=== PATIENT | female | born 1995 | race Caucasian/White ===

== ENCOUNTER 2023-03-22 18:47 | Outpatient (REF) | payer OTHER, SELFPAY ==
[2023-03-27 15:07] LABS: Age Gdln ACOG Testing Note (.); IGP, rfx Aptima HPV ASCU Note (.)
== END 2023-03-22 18:48 | disposition home or self-care (01) ==
LOC: LAB 18:47
PROVIDERS: PCP Obstetrics & Gynecology; Visit Provider Obstetrics & Gynecology
DX: Z01.419 Encounter for gynecological examination (general) (routine) without abnormal findings (principal)
CPT/HCPCS: G0145

== ENCOUNTER 2024-07-29 20:21 | Outpatient (REF) | payer OTHER, SELFPAY | END 2024-07-29 20:22 | disposition home or self-care (01) | LOC: LAB 20:21 | PROVIDERS: PCP Obstetrics & Gynecology; Visit Provider Physician Assistant | DX: Z01.419 Encounter for gynecological examination (general) (routine) without abnormal findings (principal) | CPT/HCPCS: 88175 ==